=== PATIENT | female | born 1955 | race Caucasian/White ===

== ENCOUNTER 2023-01-19 17:44 | Emergency (ER) | payer MEDICARE, SELFPAY ==
--- NOTE | ~2023-01-19 | XR_ITS ---
EXAMINATION: XR KNEE, RIGHT CLINICAL INFORMATION: Pain. Fall. COMPARISON: None available. TECHNIQUE: Four views of the right knee. FINDINGS: No fracture or joint effusion. Alignment is anatomic. Joint spaces are maintained. Small osteophytes at the patellofemoral joint. No abnormal soft tissue calcification. XR/XR knee RT 4V IMPRESSION: No fracture or dislocation.
--- NOTE | ~2023-01-19 | XR_ITS ---
EXAMINATION: XR HIP, RIGHT CLINICAL INFORMATION: Fall. Pain. COMPARISON: None available. TECHNIQUE: Two views of the right hip. FINDINGS: No fracture. Alignment is anatomic. Hip joint space is maintained. Soft tissues are unremarkable. XR/XR hip RT w [id number] IMPRESSION: No significant abnormality identified.
[2023-01-19 18:20] VITALS: BP 154/76; PULSE 84; RESP 16; TEMP 36.1; O2SAT 95; BMI 33.8
--- NOTE | 2023-01-19 18:54 | ED.FALL ---
HPI - Fall General Chief Complaint: Fall Stated Complaint: fell 01/19 right leg pain Time Seen by Provider: 01/19/23 19:42 Source: patient and family Mode of arrival: ambulatory Limitations: no limitations History of Present Illness HPI Narrative: 67 yo female fell off curb due to R knee buckling now exacerbation of R sciatica and pain in R knee no head strike. cannot bear weight on R knee complaint: fall Onset (ago): minute(s) (prior to arrival ) Fall from: standing Place fall occurred: street Loss of consciousness: none Prolonged down time: no Symptoms prior to fall: none Context: tripped/slipped Location of injury - extremities: right: knee Severity: moderate Quality: aching and throbbing Associated symptoms (after fall): unable to walk Related Data Previous Rx's Medication Instructions Recorded morphine 15 mg immediate release 15 mg PO Q6H PRN pain #12 tabs 01/19/23 tablet Allergies Allergy/AdvReac Type Severity Reaction Status Date / Time No Known Allergies Allergy Verified 01/19/23 18:24 Review of Systems Review of Systems: Constitutional : No Fever, No Chills ENT/Mouth : No Ear Pain, No Hoarseness, No sore throat Eyes: No Eye Pain, No Swelling, No Redness, No Foreign Body Cardiovascular : No Chest Pain, No SOB Respiratory : No Cough, No Dyspnea Gastrointestinal : No Nausea, No Vomiting, No Diarrhea, No abdominal Pain Genitourinary : No Dysuria, No Hematuria Musculoskeletal : positive joint pain, No Myalgias, pos Joint Swelling Skin : No Skin lacerations, No rash Neuro : No Weakness, No Numbness, No Loss of Consciousness, No Dizziness, No Headache Psych : No Anxiety/Panic, No Depression Heme/Lymph: no easy bruising, no Lymphadenopathy Endocrine : No Polyuria, No Polydipsia All other systems reviewed and are negative PMFSH Past Medical History Attestation statement: The following information was validated with the patient. Medical History Sciatica Social History Social History (Updated 01/19/23 @ 20:16 by Sophia Aldana DO) Patient Tobacco Use Status: Never used Tobacco Physical Exam Vital Signs: Vital Signs: Last Vital Signs Temp 97 F 01/19/23 18:20 Pulse 84 01/19/23 18:20 Resp 16 01/19/23 18:20 BP 154/76 H 01/19/23 18:20 Pulse Ox 95 01/19/23 18:20 BMI result Body Mass Index 33.8 Appearance: Alert. Oriented X3. No acute distress. Eyes: Pupils equal, round and reactive to light. ENT: Pharynx normal. Neck: Normal inspection. Neck supple. CVS: Normal heart rate and rhythm. Pulses normal. Respiratory: No respiratory distress. Breath sounds normal. Abdomen: Soft and nontender. Skin: Skin warm and dry. Normal skin color. Normal skin turgor. Extremities: No lower extremity edema. R knee ttp and swelling to patella area - pain with PCL and ACL testing no effusion of ankle, normal ROM of R hip, distal NV intact Neuro: Oriented X 3. No motor deficit. No sensory deficit. Course Course Course Narrative: This is an RME: Additional HPI, ROS, PE not included below will be deferred to primary provider. Patient is a 67-year-old female who presents emergency department for evaluation of right leg pain. Reports a trip in fall off a curb today. Reporting that her right knee buckled causing her to land forward falling on to the knees and hands. Denies head strike or loss of consciousness, does not use anticoagulants. Has a ongoing issue with pain to the right leg for the past 3 months. Since the fall is having pain in the right hip and knee most notably, difficulty ambulating. Plan: XR Procedures Orthopedic Splinting/Casting Injury #1: Side: right Lower Extremity Injury Location: knee Lower Extremity Immobilizer: knee immobilizer Other Orthopedic Equipment: crutches Medical Decision Making Medical Decision Making MDM Narrative: 67 yo female untreated sciatica who had been improving now with R sided knee pain after wrong step - distal NV intact bounding pulses, SILT throughout - concern for ACL/PCL injury on exam. no signs of quad injury. Will obtain xrays and place in immobilizer. Differential Diagnosis Differential Diagnoses: The differential diagnosis associated with the presentation includes sprain, strain, ACL injury Independent Interpretation I performed an independent interpretation of an: Plain X-Ray (no fracture) Radiology Impression Discussion of test interpretation with radiology: I have reviewed the radiologist's reading. Independent Historian Clinical information obtained from an independent historian. History obtained from or confirmed by: Other (family) Prescription Management I considered prescription management with: Pain Medication Discharge Plan Discharge Clinical Impression: Right knee injury Qualifiers: Encounter type: initial encounter Qualified Code(s): S89.91XA - Unspecified injury of right lower leg, initial encounter Sciatica Qualifiers: Laterality: right Qualified Code(s): M54.31 - Sciatica, right side Patient Disposition: Home, Self-Care Instructions: Knee Sprain (ED), Crutch Instructions (ED), Sciatica (ED) Additional Instructions: xrays no fracture. wear immobilizer and keep knee elevated you can ice for 15 minutes every 2 hours for the next two days. take tylenol every 4 to 6 hours no more than 4 grams a day. motrin every 6 hours with food. see your primary provider Sunday you need a MRI. do the calf exercises we practiced return for numbness, weakness, calf swelling or any other concerns. Prescriptions: New morphine 15 mg tablet 15 mg PO Q6H PRN (Reason: pain) Qty: 12 0RF Rx Instructions: partial fill okay; Partial Fill upon patient request. Referrals: Stacey Solano PA-C [Physician [employer]] - (call for next appointment)
[2023-01-19] MEDS: Morphine Sulfate Immed Release 15 MG TABLET PO (20:25)
== END 2023-01-19 20:47 | disposition home or self-care (01) ==
PROVIDERS: Emergency Provider Emergency Medicine; PCP Physician Assistant
DX: S89.91XA Unspecified injury of right lower leg, initial encounter (principal); M54.31 Sciatica, right side; M25.551 Pain in right hip; M25.561 Pain in right knee; W01.0XXA Fall on same level from slipping, tripping and stumbling without subsequent striking against object, initial encounter; Y93.9 Activity, unspecified; Y92.480 Sidewalk as the place of occurrence of the external cause; Y99.9 Unspecified external cause status
CPT/HCPCS: 29505; 73502; 73564; 99283